=== PATIENT | female | born 1990 | race Caucasian/White ===

== ENCOUNTER 2016-12-24 13:25 | Observation (INO) | payer MEDICAID ==
[~2016-12-24 13:25] MED LIST: ESOM20CA PO; OMEP20CA5 PO
== END 2016-12-24 15:05 | disposition home or self-care (01) | DRG 566 ==
LOC: LDRP 13:25
PROVIDERS: ADMIT Obstetrics & Gynecology; ATTEND Obstetrics & Gynecology
DX: O21.2 Late vomiting of pregnancy (principal); O26.893 Other specified pregnancy related conditions, third trimester; O30.003 Twin pregnancy, unspecified number of placenta and unspecified number of amniotic sacs, third trimester; N89.8 Other specified noninflammatory disorders of vagina; Z3A.34 34 weeks gestation of pregnancy
CPT/HCPCS: 59025; 81002; G0378

== ENCOUNTER 2016-12-29 15:00 | Observation (INO) | payer MEDICAID | END 2016-12-29 18:59 | disposition home or self-care (01) | DRG 566 | LOC: LDRP 15:00 | PROVIDERS: ADMIT Specialist; ATTEND Specialist | DX: O21.2 Late vomiting of pregnancy (principal); O30.003 Twin pregnancy, unspecified number of placenta and unspecified number of amniotic sacs, third trimester; Z3A.34 34 weeks gestation of pregnancy | CPT/HCPCS: 59025; 76815; 76818; 81002; G0378 ==

== ENCOUNTER 2017-01-01 14:10 | Observation (INO) | payer MEDICAID | END 2017-01-01 16:50 | disposition home or self-care (01) | DRG 566 | LOC: LDRP 14:10 | PROVIDERS: ADMIT Specialist; ATTEND Specialist | DX: O36.8130 Decreased fetal movements, third trimester, not applicable or unspecified (principal); O30.003 Twin pregnancy, unspecified number of placenta and unspecified number of amniotic sacs, third trimester; Z3A.35 35 weeks gestation of pregnancy | CPT/HCPCS: 59025; 76818; 81002; G0378 ==

== ENCOUNTER 2017-01-06 09:10 | Observation (INO) | payer MEDICAID | END 2017-01-06 10:15 | disposition home or self-care (01) | DRG 566 | LOC: LDRP 09:10 | PROVIDERS: ADMIT Obstetrics & Gynecology; ATTEND Obstetrics & Gynecology | DX: O36.8130 Decreased fetal movements, third trimester, not applicable or unspecified (principal); Z87.891 Personal history of nicotine dependence; Z3A.35 35 weeks gestation of pregnancy | CPT/HCPCS: 59025; 76818; 81002; G0378 ==

== ENCOUNTER 2017-01-09 09:50 | Observation (INO) | payer MEDICAID ==
[~2017-01-09 09:50] MED LIST changes: -OMEP20CA5 PO; +OMEP20CA74 PO
== END 2017-01-09 11:50 | disposition home or self-care (01) | DRG 566 ==
LOC: LDRP 09:50
PROVIDERS: ADMIT Obstetrics & Gynecology; ATTEND Obstetrics & Gynecology
DX: O26.893 Other specified pregnancy related conditions, third trimester (principal); O30.003 Twin pregnancy, unspecified number of placenta and unspecified number of amniotic sacs, third trimester; Z3A.36 36 weeks gestation of pregnancy
CPT/HCPCS: 59025; 76818; 81002; G0378

== ENCOUNTER 2017-01-13 10:00 | Observation (INO) | payer MEDICAID | END 2017-01-13 11:50 | disposition home or self-care (01) | DRG 566 | LOC: LDRP 10:00 | PROVIDERS: ADMIT Specialist; ATTEND Specialist | DX: O26.893 Other specified pregnancy related conditions, third trimester (principal); O30.003 Twin pregnancy, unspecified number of placenta and unspecified number of amniotic sacs, third trimester; Z87.891 Personal history of nicotine dependence; Z3A.00 Weeks of gestation of pregnancy not specified | CPT/HCPCS: 59025; 76818; 81002; G0378 ==

== ENCOUNTER 2017-01-16 10:05 | Observation (INO) | payer MEDICAID | END 2017-01-16 12:40 | disposition home or self-care (01) | DRG 566 | LOC: LDRP 10:05 | PROVIDERS: ADMIT Specialist; ATTEND Specialist | DX: O26.893 Other specified pregnancy related conditions, third trimester (principal); O30.003 Twin pregnancy, unspecified number of placenta and unspecified number of amniotic sacs, third trimester; Z3A.37 37 weeks gestation of pregnancy | CPT/HCPCS: 59025; 76818; 81002; G0378 ==

== ENCOUNTER 2017-01-16 16:58 | Inpatient (IN) | payer MEDICAID ==
[~2017-01-16] VITALS: Ht 175.3 cm; Wt 104.3 kg
[2017-01-16] MEDS ORDERED: LACT. RINGERS/OXYTOCIN 20UNITS 1,000 ML IV SCH (17:18)
[2017-01-16] MEDS ORDERED: WITCH HAZEL-GLYCERIN PAD TOP PRN (17:30)
[2017-01-16] MEDS ORDERED: DERMOPLAST 60ML BOTTLE TOP PRN (17:30)
[2017-01-16] MEDS ORDERED: PHISODERM TOP SOLN 240ML BTL TOP PRN (17:30)
[2017-01-16] MEDS ORDERED: LIDOCAINE 2%HCL (LOCAL ANESTH.) INJ 20ML MDV IJ PRN (17:30)
[2017-01-16] MEDS ORDERED: NALBUPHINE HCL 10 MG/1ml INJECTION IV PRN (17:30)
[2017-01-16] MEDS: LACTATED RINGER'S 1,000 ML IV SCH (17:40)
[2017-01-16 18:38] LABS: Basophils # (auto) 0 uL; Basophils % (auto) 0.2 % (0.0-2.0); Eosinophils # (auto) 0.1 uL; Hematocrit 35.5 % (36.0-46.0); Hemoglobin 12.2 g/dL (12.2-16.2); Lymphocytes # (auto) 1.7 uL; Lymphocytes % (auto) 22.1 % (10.0-50.0); Mean Corpuscular Hgb Conc. 34.3 g/dL (32.0-36.0); Mean Corpuscular Volume 87.6 fL (80.0-100.0); Mean Platelet Volume 11.2 fL (7.4-10.4); Monocytes # (auto) 0.6 uL; Monocytes % (auto) 7.3 % (0.0-12.0); Neutrophils # (auto) 5.3 uL; Neutrophils % (auto) 69.4 % (37.0-80.0); Platelet Count (auto) 153 10^3/uL (140-450); Red Cell Distribution Width 13.4 % (11.6-16.0); White Blood Cell 7.6 10^3/uL (4.4-10.8)
[2017-01-16 18:51] LABS: Partial Thromboplastin Time 27.3 sec (22.64-33.71); Prothrombin Time 9.4 sec (9.37-12.3)
[2017-01-16 18:59] LABS: INR 0.86 (0.9-1.15)
[2017-01-16 19:16] LABS: Albumin 2.3 g/dL (3.4-5.0); BUN/Creatinine Ratio 22.8; Bilirubin, Total 0.3 mg/dL (0.2-1.0); Calcium 8.6 mg/dL (8.5-10.1); Potassium 4.5 mmol/L (3.5-5.1); Total Protein 5.9 g/dL (6.4-8.2); Uric Acid 5.8 mg/dL (2.6-6.0)
[2017-01-16 19:41] LABS: Urine Bilirubin Negative (Negative); Urine Blood Negative /uL (Negative); Urine Color Yellow (Yellow); Urine Glucose Normal (Normal); Urine Ketone Negative (Negative); Urine Nitrite Negative (Negative); Urine RBC 1 /hpf (0 - 4); Urine Squamous Epithelial Cell FEW /hpf (<5); Urine Urobilinogen Normal (Negative); Urine pH 6.5 (5.0-8.0)
[2017-01-16] MEDS ORDERED: NALOXONE HCL 0.4 MG/ML VIAL IV PRN (20:15)
[2017-01-16] MEDS ORDERED: LIDOCAINE HCL 2 %PF INJ 10ML AMP IJ ONE (20:15)
[2017-01-16] MEDS ORDERED: fentaNYL W ROPIVACAINE 150 ML EPI SCH ×2 (20:15→21:45)
[2017-01-16] MEDS ORDERED: fentaNYL CITRATE 100 MCG/2 ML VL IV ONE ×2 (20:15→21:45)
[2017-01-16] MEDS ORDERED: ePHEDrine SULFATE 50 MG/ML AMP IV PRN (20:15)
[2017-01-16] MEDS ORDERED: SODIUM CHLORIDE 0.9% 500 ML IV PRN (21:42)
[2017-01-16] MEDS ORDERED: NALOXONE HCL 0.4 MG/ML VIAL IV ONE (21:45)
[2017-01-16] MEDS ORDERED: ePHEDrine SULFATE 50 MG/ML AMP IV ONE (21:45)
[2017-01-16] MEDS ORDERED: LIDOCAINE 2%HCL (LOCAL ANESTH.) INJ 20ML MDV XX ONE (21:45)
[2017-01-17] MEDS: LACTATED RINGER'S 1,000 ML IV SCH (01:18)
[2017-01-17] MEDS ORDERED: OXYTOCIN 10 UNIT/ML 10ML VIAL ONE (02:11)
[2017-01-17] MEDS ORDERED: ACETAMINOPHEN 325 MG TAB PO PRN (03:00)
[2017-01-17 07:42] VITALS: BP 135/70
[2017-01-17] MEDS: IBUPROFEN 600 MG TAB PO PRN ×2 (10:23→17:04)
[2017-01-17] MEDS: DOCUSATE CALCIUM 240 MG CAP PO SCH (10:23)
[2017-01-17 11:51] VITALS: BP 127/58
[2017-01-17 16:12] VITALS: BP 138/76
[2017-01-17 19:00] VITALS: BP 130/60
[2017-01-17 23:50] VITALS: BP 130/68
[2017-01-18] MEDS: IBUPROFEN 600 MG TAB PO PRN ×4 (00:10→21:41)
[2017-01-18 08:00] VITALS: BP 112/70
[2017-01-18] MEDS: DOCUSATE CALCIUM 240 MG CAP PO SCH (09:36)
[2017-01-18 12:15] VITALS: BP 126/59
[2017-01-18 16:00] VITALS: BP 129/60
[2017-01-18 19:47] VITALS: BP 120/67
[2017-01-19 00:30] VITALS: BP 115/75
[2017-01-19 04:00] VITALS: BP 129/69
[2017-01-19 08:11] VITALS: BP 137/73
[2017-01-19] MEDS ORDERED: PREN-153 OR (09:22)
[2017-01-19] MEDS ORDERED: FOLI1TAB6 PO (09:22)
== END 2017-01-19 10:05 | disposition home or self-care (01) | DRG 560 ==
LOC: OBSVTOIN 16:58 → LDRP 16:58
PROVIDERS: ADMIT Specialist; ATTEND Specialist
PROC: 3E0R3CZ (ICD-10-PCS; 2017-01-17)
PROC: 00HU33Z Insertion of Infusion Device into Spinal Canal, Percutaneous Approach (ICD-10-PCS; 2017-01-17)
PROC: 10E0XZZ Delivery of Products of Conception, External Approach (ICD-10-PCS; principal; 2017-01-17 01:48)
DX: O42.02 Full-term premature rupture of membranes, onset of labor within 24 hours of rupture (principal); Z37.2 Twins, both liveborn; Z3A.37 37 weeks gestation of pregnancy
CPT/HCPCS: 36415; 51702; 59025; 59409; 62282; 76815; 80053; 80307; 81001; 81002; 84550; 85025; 85610; 85730; 86850; 86900; 86901; 88307; 94762; 96361; 96366; J2590; J3010

== ENCOUNTER 2018-12-13 14:54 | Emergency (ER) | payer MEDICAID ==
[~2018-12-13] VITALS: Ht 175.3 cm; Wt 105.2 kg
[~2018-12-13 14:54] MED LIST changes: +FOLI1TAB6 PO; +PREN-153 OR
[2018-12-13 15:59] LABS: Basophils # (auto) 0 uL; Basophils % (auto) 0.6 % (0.0-2.0); Eosinophils # (auto) 0.2 uL; Eosinophils % (auto) 1.9 % (0.0-7.0); Hemoglobin 14.1 g/dL (12.2-16.2); Lymphocytes # (auto) 2.6 uL; Lymphocytes % (auto) 30.2 % (10.0-50.0); Mean Corpuscular Hemoglobin 29.4 pg (28.0-32.0); Mean Corpuscular Hgb Conc. 33.7 g/dL (32.0-36.0); Mean Corpuscular Volume 87.2 fL (80.0-100.0); Monocytes # (auto) 0.5 uL; Monocytes % (auto) 5.9 % (0.0-12.0); Neutrophils # (auto) 5.3 uL; Neutrophils % (auto) 61.4 % (37.0-80.0); Nucleated Red Blood Cells % 0.1 %; Platelet Count (auto) 277 10^3/uL (140-450); Red Blood Cells 4.82 10^6/uL (4.0-5.20); Red Cell Distribution Width 13.8 % (11.8-14.3); White Blood Cell 8.6 10^3/uL (4.4-10.8)
[2018-12-13 16:17] LABS: Albumin 4.3 g/dL (3.4-5.0); Calcium 8.9 mg/dL (8.5-10.1); Potassium 3.7 mmol/L (3.5-5.1)
[2018-12-13 16:19] LABS: BUN/Creatinine Ratio 17.6
[2018-12-13 16:21] LABS: Bilirubin, Total 0.4 mg/dL (0.2-1.0); Total Protein 7.7 g/dL (6.4-8.2)
[2018-12-13 16:24] LABS: Urine Bacteria FEW /hpf (None Seen); Urine Blood 3+ /uL (Negative); Urine Hyaline Cast FEW /lpf (0 - 2); Urine Specific Gravity 1.023 (1.001-1.035); Urine WBC 2 /hpf (0 - 5)
[2018-12-13 18:45] VITALS: BP 124/71
== END 2018-12-13 18:55 | disposition home or self-care (01) ==
LOC: ER 15:06
DX: N93.8 Other specified abnormal uterine and vaginal bleeding (principal); R53.1 Weakness; Z87.11 Personal history of peptic ulcer disease; Z90.49 Acquired absence of other specified parts of digestive tract; Z86.2 Personal history of diseases of the blood and blood-forming organs and certain disorders involving the immune mechanism
CPT/HCPCS: 36415; 80053; 81001; 81025; 85025; 93005

== ENCOUNTER 2021-12-09 12:44 | Emergency (ER) | payer MEDICAID, OTHER ==
[~2021-12-09] VITALS: Ht 175.3 cm; Wt 122.5 kg
[~2021-12-09 12:44] MED LIST changes: -PREN-153 OR; +PREN1TAB71 OR
[2021-12-09] MEDS ORDERED: cefTRIAXone SOD 1,000 MG VL IM ONE (16:15)
[2021-12-09] MEDS ORDERED: POLYSOL15 OP (16:15)
[2021-12-09] MEDS ORDERED: PRED20TA2 PO (16:15)
[2021-12-09] MEDS ORDERED: methylPREDNISolone SOD SUCC 125 MG/2 ML VL IM ONE (16:15)
[2021-12-09] MEDS ORDERED: AMOX-277 PO (16:15)
[2021-12-09 16:48] VITALS: BP 130/88
== END 2021-12-09 17:04 | disposition home or self-care (01) ==
LOC: ER 12:44
DX: J02.9 Acute pharyngitis, unspecified (principal); H10.32 Unspecified acute conjunctivitis, left eye
CPT/HCPCS: 96372; 99284; J0696; J2930

== ENCOUNTER 2024-05-12 23:50 | Emergency (ER) | payer OTHER ==
[~2024-05-12] VITALS: Ht 175.3 cm; Wt 118.3 kg
[~2024-05-12 23:50] MED LIST changes: +AMOX875T4 PO; +FOLI-119 PO; -FOLI1TAB6 PO; +POLYSOL28 OP; +PRED20TA2 PO
[2024-05-13 00:22] VITALS: BP 157/85; PULSE 99; RESP 16; TEMP 97.8; O2SAT 98
[2024-05-13] MEDS ORDERED: AUG875T PO (01:44)
[2024-05-13] MEDS ORDERED: METH4PAK PO (01:44)
[2024-05-13] MEDS: LIDOCAINE VISCOUS 2% 15ML UD MT ONE (01:52)
[2024-05-13] MEDS: MAALOX PLUS or MAALOX 30 ML PO ONE (01:52)
[2024-05-13] MEDS: DexAMETHasone SOD PHOS 10MG/1ML VIAL INJ IM ONE (01:55)
== END 2024-05-13 01:59 | disposition home or self-care (01) ==
LOC: ER 23:50
DX: J06.9 Acute upper respiratory infection, unspecified (principal); F15.90 Other stimulant use, unspecified, uncomplicated; Z86.2 Personal history of diseases of the blood and blood-forming organs and certain disorders involving the immune mechanism; Z90.49 Acquired absence of other specified parts of digestive tract; Z87.891 Personal history of nicotine dependence; Z79.899 Other long term (current) drug therapy
CPT/HCPCS: 96372; 99283; J1100